=== PATIENT | male | born 1930 | race Caucasian/White ===

== ENCOUNTER 2017-08-23 13:22 | Emergency (ER) | payer MEDICARE, OTHER ==
[~2017-08-23] VITALS: Ht 182.9 cm; Wt 74.8 kg
[2017-08-23 13:30] VITALS: BP 125/82
[2017-08-23] MEDS ORDERED: KETOROLAC TROMETH 30 MG/ML 1ML VIAL IV ONE (14:00)
== END 2017-08-23 14:49 | disposition home or self-care (01) ==
LOC: ER 13:22 → EDUNIT# 13:22 → ER 14:49
DX: S01.01XA Laceration without foreign body of scalp, initial encounter (principal); S80.212A Abrasion, left knee, initial encounter; E11.9 Type 2 diabetes mellitus without complications; E78.5 Hyperlipidemia, unspecified; I10 Essential (primary) hypertension; I25.2 Old myocardial infarction; E07.89 Other specified disorders of thyroid; Z95.1 Presence of aortocoronary bypass graft; W10.9XXA Fall (on) (from) unspecified stairs and steps, initial encounter; Y93.89 Activity, other specified; Y99.8 Other external cause status; Y92.89 Other specified places as the place of occurrence of the external cause
CPT/HCPCS: 12005; 70450; 96374; 99284; J1885

== ENCOUNTER 2017-09-21 21:47 | Inpatient (IN) | payer OTHER ==
[~2017-09-21] VITALS: Ht 185.4 cm; Wt 90.7 kg
[2017-09-21 22:44] LABS: Basophils # (auto) 0.1 uL; Basophils % (auto) 0.4 % (0.0-2.0); Eosinophils # (auto) 0 uL; Eosinophils % (auto) 0.1 % (0.0-7.0); Hemoglobin 14.9 g/dL (13.5-17.5); Lymphocytes # (auto) 2.2 uL; Lymphocytes % (auto) 14.7 % (10.0-50.0); Mean Corpuscular Hemoglobin 31.2 pg (28.0-32.0); Mean Corpuscular Hgb Conc. 33.8 g/dL (32.0-36.0); Mean Corpuscular Volume 92.1 fL (80.0-100.0); Mean Platelet Volume 7.6 fL (6.9-10.8); Monocytes % (auto) 6.5 % (0.0-12.0); Neutrophils # (auto) 11.6 uL; Neutrophils % (auto) 78.3 % (37.0-80.0); Platelet Count (auto) 270 10^3/uL (140-450); Red Cell Distribution Width 14.6 % (11.8-14.3); White Blood Cell 14.8 10^3/uL (4.4-10.8)
[2017-09-21 22:57] LABS: Albumin 3.4 g/dL (3.4-5.0); BUN/Creatinine Ratio 30.6; Calcium 8.8 mg/dL (8.5-10.1); Magnesium 2.4 mg/dL (1.6-2.6)
[2017-09-21 23:02] LABS: Bilirubin, Total 0.8 mg/dL (0.2-1.0)
[2017-09-21 23:03] LABS: Total Protein 7.3 g/dL (6.4-8.2)
[2017-09-21 23:08] LABS: INR 1.04 (0.9-1.15); Partial Thromboplastin Time 28.4 sec (22.64-33.71); Prothrombin Time 11.3 sec (9.37-12.3)
[2017-09-22] MEDS ORDERED: ASPirin 81 mg TAB PO ONE (05:15)
[2017-09-22] MEDS ORDERED: SODIUM CHLORIDE 0.9% 1,000 ML IV SCH (06:13)
[2017-09-22] MEDS ORDERED: HYDROcodone-ACET 5/325MG TAB PO PRN (06:15)
[2017-09-22] MEDS ORDERED: TEMAZEPAM 15 MG CAP PO PRN (06:15)
[2017-09-22] MEDS ORDERED: DEXTROSE (50%) 50ML SYRG IV PRN (06:15)
[2017-09-22] MEDS ORDERED: ACETAMINOPHEN 325 MG TAB PO PRN (06:15)
[2017-09-22] MEDS ORDERED: ONDANSETRON HCL 4 MG/2 ML VIAL IV PRN (06:15)
[2017-09-22] MEDS ORDERED: MORPHINE SULF INJ 2 MG/ML SYRINGE 1ML IV PRN (06:15)
[2017-09-22] MEDS ORDERED: NITROGLYCERIN 0.4 MG SL TAB SL PRN (06:15)
[2017-09-22] MEDS ORDERED: LEVOTHYROXINE SODIUM 100 MCG TAB PO SCH (07:00)
[2017-09-22 07:37] LABS: Urine Bilirubin Negative (Negative); Urine Blood Negative /uL (Negative); Urine Ca Oxalate Crystal MANY (None Seen); Urine Color Yellow (Yellow); Urine Glucose Normal (Normal); Urine Ketone TRACE (Negative); Urine Mucus FEW (None Seen); Urine Nitrite Negative (Negative); Urine RBC 1 /hpf (0 - 3); Urine Squamous Epithelial Cell FEW /hpf (<5); Urine Urobilinogen Normal (Negative)
[2017-09-22 08:30] VITALS: BP 152/88
[2017-09-22] MEDS ORDERED: cefTRIAXone 1GM/10ml IVPUSH 10 ML IV SCH (09:00)
[2017-09-22] MEDS ORDERED: amLODIPine BESYLATE 5 MG TAB PO SCH (10:00)
[2017-09-22] MEDS ORDERED: FAMOTIDINE 20 MG TAB PO SCH (10:00)
[2017-09-22] MEDS ORDERED: CARVEDILOL 3.125 MG TAB PO SCH (10:00)
[2017-09-22] MEDS ORDERED: ASPirin 81 mg TAB PO SCH (10:00)
[2017-09-22] MEDS ORDERED: ENOXAPARIN SOD 40 MG/0.4 ML SYRINGE SC SCH (10:00)
[2017-09-22 10:30] LABS: Basophils # (auto) 0 uL; Basophils % (auto) 0.2 % (0.0-2.0); Eosinophils # (auto) 0 uL; Hematocrit 45.3 % (41.0-53.0); Hemoglobin 14.7 g/dL (13.5-17.5); Lymphocytes # (auto) 2.6 uL; Lymphocytes % (auto) 16.7 % (10.0-50.0); Mean Corpuscular Hemoglobin 30.2 pg (28.0-32.0); Mean Corpuscular Hgb Conc. 32.5 g/dL (32.0-36.0); Mean Corpuscular Volume 92.9 fL (80.0-100.0); Mean Platelet Volume 8.1 fL (6.9-10.8); Monocytes # (auto) 0.8 uL; Monocytes % (auto) 5.5 % (0.0-12.0); Neutrophils % (auto) 77.6 % (37.0-80.0); Platelet Count (auto) 262 10^3/uL (140-450); Red Cell Distribution Width 14.8 % (11.8-14.3); White Blood Cell 15.5 10^3/uL (4.4-10.8)
[2017-09-22] MEDS ORDERED: InsuLIN REG 1unit/0.01ml Soln (100units/ml) SC SCH (12:00)
[2017-09-22] MEDS ORDERED: ACCU-CHEK COMFORT CURVE STRIP VI SCH (12:00)
[2017-09-22 12:30] VITALS: BP 160/80
[2017-09-22] MEDS ORDERED: cloNIDine HCL 0.1 MG TAB PO SCH (14:00)
[2017-09-22 15:49] VITALS: BP 135/78
[2017-09-22 17:18] VITALS: BP 101/70
== END 2017-09-22 17:45 | disposition home health service (06) | DRG 641 ==
LOC: EDBD 21:47 → ER 21:53 → TELE 21:54 → TELE-WESTW 09-22 08:22
PROVIDERS: ADMIT Nurse Practitioner; ATTEND Nurse Practitioner
DX: E86.0 Dehydration (principal); E11.9 Type 2 diabetes mellitus without complications; I44.7 Left bundle-branch block, unspecified; I10 Essential (primary) hypertension; D72.829 Elevated white blood cell count, unspecified; E78.5 Hyperlipidemia, unspecified; K57.30 Diverticulosis of large intestine without perforation or abscess without bleeding; R63.0 Anorexia; I25.10 Atherosclerotic heart disease of native coronary artery without angina pectoris; K44.9 Diaphragmatic hernia without obstruction or gangrene; N20.0 Calculus of kidney; Z95.1 Presence of aortocoronary bypass graft; Z68.26 Body mass index [BMI] 26.0-26.9, adult; Z90.49 Acquired absence of other specified parts of digestive tract
CPT/HCPCS: 36415; 71010; 74176; 80053; 81001; 82962; 83690; 83735; 84443; 84484; 85025; 85610; 85730; 87040; 93005; 93306; 96360; J1815

== ENCOUNTER 2019-04-22 11:42 | Emergency (ER) | payer OTHER ==
[~2019-04-22] VITALS: Ht 180.3 cm; Wt 65.8 kg
[2019-04-22 12:11] VITALS: BP 103/50
== END 2019-04-22 12:25 | disposition left against medical advice (07) ==
LOC: EDBD 11:42 → ER 11:53
DX: R00.1 Bradycardia, unspecified (principal); R55 Syncope and collapse; R53.83 Other fatigue; E11.9 Type 2 diabetes mellitus without complications; E78.5 Hyperlipidemia, unspecified; I10 Essential (primary) hypertension; I25.2 Old myocardial infarction; E07.9 Disorder of thyroid, unspecified; Z90.49 Acquired absence of other specified parts of digestive tract; Z95.1 Presence of aortocoronary bypass graft; Z53.29 Procedure and treatment not carried out because of patient's decision for other reasons
CPT/HCPCS: 93005; 94761

== ENCOUNTER 2019-06-07 08:54 | Emergency (ER) | payer OTHER ==
[~2019-06-07] VITALS: Ht 180.3 cm; Wt 72.6 kg
[2019-06-07] MEDS ORDERED: TETANUS-DIPTH-ACEL PERTUSSIS 0.5ML SYRG IM ONE (09:15)
[2019-06-07 10:17] LABS: Basophils # (auto) 0 uL; Basophils % (auto) 0.2 % (0.0-2.0); Eosinophils # (auto) 0.1 uL; Eosinophils % (auto) 1.3 % (0.0-7.0); Hematocrit 38.5 % (41.0-53.0); Hemoglobin 12.5 g/dL (13.5-17.5); Lymphocytes # (auto) 1.2 uL; Lymphocytes % (auto) 15.7 % (10.0-50.0); Mean Corpuscular Hemoglobin 30.1 pg (28.0-32.0); Mean Corpuscular Hgb Conc. 32.6 g/dL (32.0-36.0); Mean Corpuscular Volume 92.6 fL (80.0-100.0); Monocytes # (auto) 0.4 uL; Monocytes % (auto) 5.6 % (0.0-12.0); Neutrophils # (auto) 6.1 uL; Neutrophils % (auto) 77.2 % (37.0-80.0); Platelet Count (auto) 297 10^3/uL (140-450); Red Blood Cells 4.16 10^6/uL (4.5-5.90); Red Cell Distribution Width 16.4 % (11.8-14.3); White Blood Cell 7.9 10^3/uL (4.4-10.8)
[2019-06-07] MEDS ORDERED: LIDOCAINE 2%HCL (LOCAL ANESTH.) INJ 20ML MDV ID ONE (10:30)
[2019-06-07] MEDS ORDERED: NEOMYCIN-BACITRACIN-POLYM UNITDOSE PKG TOP OINT TOP ONE (10:30)
[2019-06-07 10:33] LABS: Albumin 3.1 g/dL (3.4-5.0); Calcium 8.8 mg/dL (8.5-10.1); Potassium 4.6 mmol/L (3.5-5.1)
[2019-06-07 10:36] LABS: Bilirubin, Total 0.4 mg/dL (0.2-1.0); Total Protein 6.6 g/dL (6.4-8.2)
[2019-06-07 11:07] LABS: Urine Bacteria NONE SEEN /hpf (None Seen); Urine Blood 1+ /uL (Negative); Urine Mucus FEW (None Seen); Urine Specific Gravity 1.014 (1.001-1.035); Urine WBC 3 /hpf (0 - 3)
[2019-06-07 11:30] VITALS: BP 143/69
== END 2019-06-07 13:36 | disposition home or self-care (01) ==
LOC: ER 08:54 → EDBD 08:54 → ER 13:36
DX: S02.2XXA Fracture of nasal bones, initial encounter for closed fracture (principal); S01.21XA Laceration without foreign body of nose, initial encounter; S80.01XA Contusion of right knee, initial encounter; S80.212A Abrasion, left knee, initial encounter; E44.1 Mild protein-calorie malnutrition; E11.9 Type 2 diabetes mellitus without complications; E78.5 Hyperlipidemia, unspecified; I10 Essential (primary) hypertension; I25.2 Old myocardial infarction; Z68.22 Body mass index [BMI] 22.0-22.9, adult; Z95.1 Presence of aortocoronary bypass graft; W18.39XA Other fall on same level, initial encounter; Y93.89 Activity, other specified; Y92.098 Other place in other non-institutional residence as the place of occurrence of the external cause; Y99.8 Other external cause status
CPT/HCPCS: 12011; 36415; 70160; 73562; 80053; 81001; 85025; 90471; 90715; 94761

== ENCOUNTER 2019-12-27 20:01 | Inpatient (IN) | payer OTHER ==
[~2019-12-27] VITALS: Ht 172.7 cm; Wt 68.4 kg
[2019-12-27] MEDS ORDERED: LORazepam 2MG/ML-1ML VIAL IM ONE (20:30)
[2019-12-27 20:59] LABS: Urine Bacteria NONE SEEN /hpf (None Seen); Urine Blood Negative /uL (Negative); Urine Mucus FEW (None Seen); Urine Specific Gravity 1.025 (1.001-1.035); Urine WBC <1 /hpf (0 - 3)
[2019-12-27 21:13] LABS: Basophils # (auto) 0 10 ^3/uL (0-0.2); Basophils % (auto) 0.3 % (0.0-2.0); Eosinophils # (auto) 0.1 10 ^3/uL (0-0.8); Eosinophils % (auto) 0.7 % (0.0-7.0); Hematocrit 40.7 % (41.0-53.0); Hemoglobin 14.1 g/dL (13.5-17.5); Lymphocytes # (auto) 1.3 10 ^3/uL (0.4-5.4); Mean Corpuscular Hemoglobin 32.1 pg (28.0-32.0); Mean Corpuscular Hgb Conc. 34.7 g/dL (32.0-36.0); Mean Corpuscular Volume 92.4 fL (80.0-100.0); Monocytes # (auto) 0.5 10 ^3/uL (0-1.3); Monocytes % (auto) 5.7 % (0.0-12.0); Neutrophils # (auto) 6.2 10 ^3/uL (1.6-8.6); Neutrophils % (auto) 77.3 % (37.0-80.0); Platelet Count (auto) 241 10^3/uL (140-450); Red Blood Cells 4.41 10^6/uL (4.5-5.90); Red Cell Distribution Width 14.2 % (11.8-14.3)
[2019-12-27 21:36] LABS: Albumin 3.4 g/dL (3.4-5.0); Calcium 8.7 mg/dL (8.5-10.1); Potassium 4.2 mmol/L (3.5-5.1)
[2019-12-27 21:39] LABS: BUN/Creatinine Ratio 20.8; Bilirubin, Total 0.2 mg/dL (0.2-1.0); Total Protein 6.7 g/dL (6.4-8.2)
[2019-12-27] MEDS ORDERED: SODIUM CHLORIDE 0.9% 1,000 ML IV SCH (22:53)
[2019-12-27] MEDS ORDERED: DEXTROSE (50%) 50ML SYRG IV PRN (23:00)
[2019-12-27] MEDS ORDERED: ACETAMINOPHEN 325 MG TAB PO PRN (23:00)
[2019-12-27] MEDS ORDERED: DOCUSATE SOD 100 MG CAP PO PRN (23:00)
[2019-12-27] MEDS ORDERED: ONDANSETRON HCL 4 MG/2 ML VIAL IV PRN (23:00)
[2019-12-27] MEDS ORDERED: LATA0.0019 EACHEYE (23:28)
[2019-12-27] MEDS ORDERED: HYOS0.1224 PO (23:28)
[2019-12-27] MEDS ORDERED: HAL5T PO (23:28)
[2019-12-27] MEDS ORDERED: LEV100T PO (23:28)
[2019-12-27] MEDS ORDERED: SULF-106 TOP (23:28)
[2019-12-27] MEDS ORDERED: PRO10T PO (23:28)
[2019-12-27] MEDS ORDERED: ACET650S12 RE (23:28)
[2019-12-27] MEDS ORDERED: RIS1T PO (23:28)
[2019-12-27] MEDS ORDERED: ALL100T PO (23:28)
[2019-12-27] MEDS ORDERED: PHEN32.44 PO (23:28)
[2019-12-27] MEDS ORDERED: BRIM0.2S17 EACHEYE (23:28)
[2019-12-27] MEDS ORDERED: MORP15TA PO (23:28)
[2019-12-27] MEDS ORDERED: ASPI81CH59 PO (23:28)
[2019-12-27] MEDS ORDERED: SERT25TA84 PO (23:28)
--- NOTE | 2019-12-27 23:30 | NUR ---
MS admit from ER YINKA MORALES admitted to tele/MS after SBAR received. Patient oriented to Gloria portillo RN, unit, room, bed, and unit policies regarding patient care and visiting hours. Patient weighed by bedscale and encouraged to call if they need something. All questions and concerns addressed, patient verbalized understanding. Pt in lowest possible position, bed rails up x2, call light within reach, and sitter at bedside. Pt states that he "does not want to be here" and he "should be at home". Will continue to monitor.
[2019-12-28] MEDS ORDERED: PROCHLORPERAZINE MALEATE 10 MG TAB PO PRN
[2019-12-28] MEDS ORDERED: MORPHINE SULFATE 10 MG/5 ML ORAL SOLN PO PRN
[2019-12-28] MEDS ORDERED: HALOPERIDOL 1 MG TAB PO PRN
[2019-12-28] MEDS: ACCU-CHEK COMFORT CURVE STRIP VI SCH ×6 (00:06→22:23)
--- NOTE | 2019-12-28 00:23 | NUR ---
UNABLE TO VERIFY LIST OF MEDICATIONS WITH PATIENT AT THIS TIME. WILL ENDORSE TO RN.
[2019-12-28] MEDS ORDERED: HYOSCYAMINE SULF 0.125 MG ODT TAB PO PRN (02:00)
[2019-12-28] MEDS: InsuLIN REG 1unit/0.01ml Soln (100units/ml) SC SCH ×6 (04:00→22:00)
[2019-12-28 05:00] VITALS: BP 128/68
[2019-12-28] MEDS: BRIMONIDINE 0.2% OPTH Soln 5ml EACHEYE SCH ×3 (06:00→22:00)
[2019-12-28] MEDS: LEVOTHYROXINE SODIUM 100 MCG TAB PO SCH (06:47)
--- NOTE | 2019-12-28 06:49 | NUR ---
Pt fell Pt fell, hospitalist called. waiting for hospitalist. vital signs as follows: BP: 153/84 Pulse: 59 O2: 97 Blood sugar: 88. Pt was coming back from bathroom, and slipped while coming around the corner. Sitter caught pt so that only his knees, hands, and nose hit the floor. Pt had a nose bleed, and was put back into bed. Bleeding stopped and assessment and vitals were taken. Pts vitals were stable, pt having trouble remember why he is here in the hospital, and has a history of dementia.
--- NOTE | 2019-12-28 06:55 | NUR ---
Hospitalist ordered a facial x-ray. Will put in orders to be carried out.
[2019-12-28 07:23] LABS: Basophils # (auto) 0 10 ^3/uL (0-0.2); Basophils % (auto) 0.4 % (0.0-2.0); Eosinophils # (auto) 0.1 10 ^3/uL (0-0.8); Eosinophils % (auto) 1.2 % (0.0-7.0); Hematocrit 41.6 % (41.0-53.0); Hemoglobin 13.8 g/dL (13.5-17.5); Lymphocytes % (auto) 32.3 % (10.0-50.0); Mean Corpuscular Hemoglobin 30.7 pg (28.0-32.0); Mean Corpuscular Hgb Conc. 33.1 g/dL (32.0-36.0); Mean Corpuscular Volume 92.7 fL (80.0-100.0); Monocytes # (auto) 0.4 10 ^3/uL (0-1.3); Monocytes % (auto) 5.6 % (0.0-12.0); Neutrophils # (auto) 3.8 10 ^3/uL (1.6-8.6); Neutrophils % (auto) 60.5 % (37.0-80.0); Platelet Count (auto) 235 10^3/uL (140-450); Red Blood Cells 4.49 10^6/uL (4.5-5.90); Red Cell Distribution Width 14.4 % (11.8-14.3); White Blood Cell 6.3 10^3/uL (4.4-10.8)
--- NOTE | 2019-12-28 07:30 | NUR ---
Opening Shift Note Assumed care of patient, awake and alert. No S/S of distress/SOB or pain. PIV is patent and intact. Bed is low, locked with 2x side rails up. Fall precautions in place. Call light is within reach. Sitter is at bedside. Instructed on POC and to call for assist PRN, will continue to monitor for changes Q1hr and PRN.
[2019-12-28 07:34] LABS: Calcium 8.7 mg/dL (8.5-10.1); Potassium 3.9 mmol/L (3.5-5.1)
[2019-12-28 08:33] VITALS: BP 129/70
[2019-12-28] MEDS: SILVER SULFADIAZINE 1 % TOPICAL CREAM 50GM TOP SCH (10:00)
[2019-12-28] MEDS ORDERED: ALLOPURINOL 100 MG TAB PO SCH (10:00)
[2019-12-28] MEDS: SERTRALINE HCL 50 MG TAB PO SCH (10:06)
[2019-12-28] MEDS: risperiDONE 1 MG TAB PO SCH ×2 (10:07→22:10)
[2019-12-28] MEDS: LISINOPRIL 20 MG TAB PO SCH (10:08)
[2019-12-28] MEDS: ASPirin 81 mg TAB PO SCH (10:08)
--- NOTE | 2019-12-28 10:30 | NUR ---
[facility].
--- NOTE | 2019-12-28 10:52 | NUR ---
[facility] Spoke with Triage nurse Marilu from [facility] regarding patients current home medications. Provided Marilu with fax number and she stated she will fax over list of home medications. Will wait for fax.
--- NOTE | 2019-12-28 11:00 | NUR ---
Pain Medication Patient is having 8/10 pain on adult pain scale. Based on pain scale rating patient has morphine available. Patient stated that he did not want morphine because it was too strong and wanted Acetaminophen instead. Educated patient on both medications and let him know that acetaminophen may not relieve pain. Patient verbalized understanding. Will continue to monitor.
[2019-12-28] MEDS: ALLOPURINOL 100 MG TAB PO SCH (11:18)
[2019-12-28] MEDS ORDERED: PHEN32.44 PO (11:37)
[2019-12-28] MEDS ORDERED: SIMV20TA90 PO (11:37)
[2019-12-28] MEDS ORDERED: GLIP5TAB12 PO (11:37)
[2019-12-28] MEDS ORDERED: ENAL2.5T PO (11:37)
[2019-12-28] MEDS ORDERED: LORA0.5T11 PO (11:37)
[2019-12-28] MEDS ORDERED: HYDROcodone-ACET 5/325MG TAB PO PRN (12:45)
[2019-12-28 12:57] VITALS: BP 141/65
--- NOTE | 2019-12-28 14:05 | NUR ---
PAGED BOTTOM CEMENTER: PAGED RESIDENCE LIFE DIRECTOR BOTTOM CEMENTER PRABHA REGARDING NEW HOSPICE COMPANY
[2019-12-28] MEDS ORDERED: HALOPERIDOL 1 MG TAB PO ONE (14:30)
--- NOTE | 2019-12-28 14:50 | NUR ---
RECEIVED CALL FROM DIE LAY OUT WORKER: SPOKE WITH PRABHA, SHE SPOKE WITH THE PATIENTS DAUGHTER WHO STATED SHE WOULD LIKE [facility] UPON DISCHARGE BUT WOULD LIKE THE PATIENT TO GO TO A BOARD AND CARE RATHER THAN HOME, FAMILY WILL LOOK INTO BOARD AND CARE FACILITIES, PER PRABHA SHE WILL FOLLOW UP WITH THE PATIENTS DAUGHTER TOMORROW TO SEE SEE WHICH BOARD AND CARE THEY CHOOSE SO THAT HOSPICE CAN BE ARRANGED. PRIMARY RN PAIGE ACOSTA, WILL NOTIFY DR. Geri HOBSON THAT PATIENT WILL NOT BE DISCHARGED TODAY.
--- NOTE | 2019-12-28 14:57 | NUR ---
RONAL Nolasco regarding patient's discharge. The patient's family has decided to start services with [facility]. They also were looking into board and care facilities. Case management to follow up with family tomorrow to verify what board and care they chose so hospice can be arranged. Patient will not be discharged today.
--- NOTE | 2019-12-28 15:26 | NUR ---
Received a call from Dr. Dwight Null to cancel service to [facility] Null and transfer service to Dwight Null. Noted and carried it out.
--- NOTE | 2019-12-28 16:15 | NUR ---
Daughter's Contact Info Cheryl [phone]
[2019-12-28 17:00] VITALS: BP 137/69
[2019-12-28] MEDS: LATANOPROST 0.005 % OPTH(EYE) SOL 2.5ML EACHEYE SCH (17:41)
[2019-12-28] MEDS: HALOPERIDOL 1 MG TAB PO PRN (21:18)
--- NOTE | 2019-12-28 21:30 | NUR ---
Pt was becoming very agitated and screaming for the nurse. Patient stated he needed medication to help him calm down. Administered Haldol 1mg PO. Pt was immediately less agitated post administration. Will continue to monitor.
[2019-12-28 22:00] VITALS: BP 142/69
[2019-12-28] MEDS ORDERED: ATORVASTATIN 20 MG TAB PO SCH (22:00)
[2019-12-28] MEDS ORDERED: PHENobarbital 20 MG/5 ML UD PO SCH (22:00)
--- NOTE | 2019-12-28 22:00 | NUR ---
Pt remains calm after receiving Haldol PO. Pt is currently resting quietly in bed. Pt states states that he is good and is going to go to bed now.
[2019-12-29] VITALS (7 sets, daily range): BP systolic 134–180; BP diastolic 77–96
[2019-12-29] MEDS: BRIMONIDINE 0.2% OPTH Soln 5ml EACHEYE SCH ×2 (06:00→14:27)
[2019-12-29] MEDS: InsuLIN REG 1unit/0.01ml Soln (100units/ml) SC SCH ×3 (06:35→16:55)
[2019-12-29] MEDS: LEVOTHYROXINE SODIUM 100 MCG TAB PO SCH (06:35)
[2019-12-29] MEDS: ACCU-CHEK COMFORT CURVE STRIP VI SCH ×3 (06:36→16:54)
--- NOTE | 2019-12-29 08:29 | NUR ---
D/C Planning scout leaser Received a PAGE from Charge nurse Divya stating patient was previously on [facility] with [facility] and family is requesting a new Hospice. Placed called to patient daughter Cheryl Ph:) and provided her with hospice list. Patient daughter Cheryl stated she [facility] that Doctor Constance recommended. Cheryl stated patient has an income of 1,400 and would like him to be placed. Placed called to Kasandra with [facility] hospice. Kasandra advised me they will look for placement and will follow up today Sunday. Charge Nurse Divya was informed of d/c plan.
[2019-12-29] MEDS: ALLOPURINOL 100 MG TAB PO SCH (09:35)
[2019-12-29] MEDS: ASPirin 81 mg TAB PO SCH (09:36)
[2019-12-29] MEDS: risperiDONE 1 MG TAB PO SCH (09:36)
[2019-12-29] MEDS: LISINOPRIL 20 MG TAB PO SCH (09:36)
[2019-12-29] MEDS: SERTRALINE HCL 50 MG TAB PO SCH (09:36)
[2019-12-29] MEDS: SILVER SULFADIAZINE 1 % TOPICAL CREAM 50GM TOP SCH (10:00)
--- NOTE | 2019-12-29 12:15 | NUR ---
PT IS RESTLESS, AGITATED, YELLING AND TRYING TO GET OUT OF BED, WILL GIVE MEDICATION ORDERED.
[2019-12-29] MEDS: HALOPERIDOL 1 MG TAB PO PRN (12:22)
--- NOTE | 2019-12-29 14:36 | NUR ---
HIGH BLOOD PRESSURE DR. Geri HOBSON MADE AWARE OF BP 176/91MMHG, PT HAS NO PRN MEDICATION FOR BLOOD PRESSURE.
--- NOTE | 2019-12-29 14:57 | NUR ---
DR. [place] HOBSON AT BEDSIDE WITH PRABHA FINANCIAL ADMINISTRATOR, PT WILL BE DISCHARGE TODAY. DISCHARGE MEDICATION PER HOSPICE. DR. Hai HOBSON MADE AWARE OF THE ELEVATED BP.
[2019-12-29] MEDS ORDERED: amLODIPine BESYLATE 5 MG TAB PO ONE (15:00)
[2019-12-29] MEDS ORDERED: hydrALAZINE HCL 20 MG/ML VL IV PRN (15:00)
[2019-12-29] MEDS ORDERED: AMLO10TA13 PO (15:11)
--- NOTE | 2019-12-29 15:32 | NUR ---
SPOKE WITH PRABHA, CARLEEN ARMANDO PT IS ACCEPTED AT [facility] TEL# [phone], [employer] TIME BETWEEN 5-6PM GENERAL TRANSPORT.
--- NOTE | 2019-12-29 16:16 | NUR ---
Received followed up called from Kasandra with [facility] stating patient will go to [facility] boarding care in [place] address: [id number] Family is aware. Transportation has been arrange with general transport between 17:00-18:00 via [employer]. ANAND Castro was informed.
--- NOTE | 2019-12-29 16:45 | NUR ---
Kasandra with [facility] advised me time of transportation has changed to 19:00-20:00. RN was informed.
--- NOTE | 2019-12-29 16:51 | NUR ---
assessment Patient is a 89 year old male who is answering appropriate, but forgets within a few minutes. Patient has been diagnosed with dementia. Prior to admission patient lived home with his and functioned with assistance. Per patient he wants to return home to his prior living arrangements post discharge. Patient has a hospice order and his daughter Cheryl has spoken with Virgen NIELSEN and arranged for [facility] hospice with placement. I asked Cheryl to bring patients to bedside and explain that he will be placed in a board and care on hospice. Per Cheryl she will have Radha come to bedside. I informed patient he has a right to speak to a licensed clinical social worker regarding all care. I informed patient he has a right to participate in any and all discharge planning. Patient has a POA and advanced directive. Patient verbalized understanding and agreed to discharge plan. Addendum: 12/29/19 at 1702 by Jenniffer GUERRA Amended: Links added.
[2019-12-29] MEDS: LATANOPROST 0.005 % OPTH(EYE) SOL 2.5ML EACHEYE SCH (17:49)
--- NOTE | 2019-12-29 19:26 | NUR ---
care endorsed to ANAND Morris, pt still waiting for transportation.
--- NOTE | 2019-12-29 19:45 | NUR ---
Opening Shift Note Assumed care of patient, awake and alert. No S/S of distress/SOB or pain. Fall and safety precautions in place. Call light within reach and able to use. Instructed on POC and to call for assist PRN, will continue to monitor for changes Q1hr and PRN.
--- NOTE | 2019-12-29 20:08 | NUR ---
Discharge Transfers Patient is being transferred to [facility]. Vitals signs as follows: Blood Pressure 134/83; Heart Rate 97 bpm; RR 18; Oxygen Saturation 94% on room air; Temp 97.7; no complaints of pain 0/10 using adult scale. Patient is to follow up with doctor Michael HOBSON at the receiving facility. Paperwork for patient and doctor given to transport team. hospitality team member verbalized understanding and in agreement. Patient departs at this time with General Transport staff member Ken via wheelchair. Respirations even and unlabored, visitors aware and in agreement with patient's disposition.
[2019-12-30] MEDS ORDERED: amLODIPine BESYLATE 5 MG TAB PO SCH (10:00)
== END 2019-12-29 20:08 | disposition hospice, home (50) | DRG 884 ==
LOC: EDBD 20:01 → ER 20:03 → OVERFLOW 20:04 → CENTRAL 23:22
PROVIDERS: ADMIT Hospitalist; ATTEND Internal Medicine
DX: F03.90 Unspecified dementia, unspecified severity, without behavioral disturbance, psychotic disturbance, mood disturbance, and anxiety (principal); S02.2XXA Fracture of nasal bones, initial encounter for closed fracture; M15.9 Polyosteoarthritis, unspecified; E11.9 Type 2 diabetes mellitus without complications; I10 Essential (primary) hypertension; J06.9 Acute upper respiratory infection, unspecified; Z95.1 Presence of aortocoronary bypass graft; Z79.82 Long term (current) use of aspirin; X58.XXXA Exposure to other specified factors, initial encounter; Y93.89 Activity, other specified; Y92.89 Other specified places as the place of occurrence of the external cause; Y99.8 Other external cause status
CPT/HCPCS: 36415; 70140; 71045; 80048; 80053; 81001; 82962; 83036; 85025; 96372; 97116; 97163; 97530; G0378